=== PATIENT | male | born 1985 | race Caucasian/White ===

== ENCOUNTER 2021-07-07 13:22 | Emergency (ER) | payer SELFPAY ==
[2021-07-07] MEDS ORDERED: NA CHLORIDE 0.9% 1,000 ML ONE (14:12)
[2021-07-07] MEDS ORDERED: ONDANSETRON 4 MG/2 ML VIAL ONE (14:12)
[2021-07-07 14:45] LABS: Absolute Lymphocytes (CBC) 0.8 K/uL (0.7-4.9); Basophils % 0.2 % (0-1.3); Hematocrit 37.5 % (39.6-49.0); Lymphocytes % 8.4 % (15.3-44.8); MPV 10.6 fL (7.6-11.3); RBC Red Blood Cell Count 3.31 M/uL (4.33-5.43)
[2021-07-07 14:53] LABS: ALT/SGPT 171 U/L (12-78); AST/SGOT 260 U/L (15-37); Albumin 3.1 g/dL (3.4-5.0); Alkaline Phosphatase 371 U/L (45-117); BUN Blood Urea Nitrogen 11 mg/dL (7-18); Bicarbonate 29 mmol/L (21-32); Bilirubin Direct 3.7 mg/dL (0-0.2); Bilirubin Total 4.2 mg/dL (0.2-1.0); Glucose Level 252 mg/dL (74-106); Lipase 228 U/L (73-393); Protein, Total 8.1 g/dL (6.4-8.2); Sodium Level 137 mmol/L (136-145)
--- NOTE | 2021-07-07 14:56 | RAD REPORT ---
EXAM DESCRIPTION: CTAbdomen Pelvis W Contrast - 07/07/2021 2:38 pm CLINICAL HISTORY: ABD PAIN COMPARISON: No comparisons TECHNIQUE: CT of the abdomen and pelvis was performed. All CT scans are performed using dose optimization technique as appropriate and may include automated exposure control or mA/KV adjustment according to patient size. FINDINGS: Lower chest: No acute abnormality. Liver: Hepatic steatosis. Biliary: No biliary ductal dilatation. Stomach: No significant focal abnormality. Duodenum: No significant focal abnormality. Pancreas: Enhancing peripancreatic fluid collection measuring roughly 12.7 x 8.6 cm. Spleen: No significant abnormality. Adrenal: No suspicious lesions. Kidney/ureter: No hydronephrosis. No renal calculi. Retroperitoneum: No retroperitoneal adenopathy. Vascular: No aneurysm. Bowel: Colonic wall thickening extending from the mid transverse colon to the rectum. Normal appendix . Moderate stool in the ascending colon.. Peritoneum: Small volume of fluid in the right inguinal canal. Bladder: Grossly unremarkable. Reproductive: No adnexal masses. Bones: No acute fracture. Other: n/a IMPRESSION: Enhancing peripancreatic fluid collection may represent a pseudocyst. No imaging availab le for comparison. The sterility of the fluid is indeterminate by CT. Colonic wall thickening from the mid transverse colon to the rectum could represent colitis.
[2021-07-07 15:44] LABS: SARS-COV-2 RT PCR NEGATIVE (NEGATIVE)
[2021-07-07] MEDS ORDERED: metroNIDAZOLE 500 MG TABLET ONE (16:25)
[2021-07-07] MEDS ORDERED: POTASSIUM CL SA 10 MEQ TAB PO ONE (16:25)
[2021-07-07] MEDS ORDERED: CIPROFLOXACIN HCL 500 MG TAB ONE (16:25)
[2021-07-07] MEDS ORDERED: KCL 20 MEQ/100 mL IVPB 20 MEQ/100 ML BAG IV ONE (16:26)
[2021-07-07] MEDS ORDERED: KETOROLAC 30 MG/ML INJ ONE (16:26)
--- NOTE | 2021-07-07 17:27 | ER ---
Nurse's Notes [facility] Name: Collin Arroyo Age: 36 yrs Sex: Male : 1985 Arrival Date: 07/07/2021 Time: 13:23 Bed 20 Private MD: Diagnosis: Colitis;Vomiting;Diarrhea, unspecified;Abdominal pain, unspecified Presentation: 07/07 13:24 Chief complaint: EMS states: Pt was recently admitted to hospital for pancreatitis and aa5 alcoholism and was admitted for 2 weeks at [facility]. Pt has been at [facility] since yesterday and started with abd pain and vomiting today. Onset of symptoms was July 07, 2021. 13:24 Acuity: ARABELLA 3 aa5 13:24 Method Of Arrival: EMS: [facility] aa5 19:45 Initial Sepsis Screen: Does the patient meet any 2 criteria? No. Patient's initial cc4 sepsis screen is negative. Does the patient have a suspected source of infection? No. Patient's initial sepsis screen is negative. Risk Assessment: Do you want to hurt yourself or someone else? Patient reports no desire to harm self or others. 19:45 Coronavirus screen: Vaccine status: Patient reports being unvaccinated. At this time, cc4 the client does not indicate any symptoms associated with coronavirus-19. Ebola Screen: Patient negative for fever greater than or equal to 101.5 degrees Fahrenheit, and additional compatible Ebola Virus Disease symptoms No symptoms or risks identified at this time. Historical: - Allergies: 13:27 No Known Allergies; aa5 - PMHx: 13:27 Pancreatitis; Alcoholism; aa5 - Immunization history:: Adult Immunizations up to date, Client reports receiving the 2nd dose of the Covid vaccine. - Social history:: Smoking status: Patient reports the use of cigarette tobacco products, denies chronic smoking, but will smoke occasionally, Patient uses alcohol, on a daily basis. however states have not had a drink in 20 days. The patient lives [facility] . Screenin:06 Abuse screen: Denies threats or abuse. Nutritional screening: No deficits noted. sl2 Tuberculosis screening: No symptoms or risk factors identified. Fall Risk None identified. Fall in past 12 months (25 points). No secondary diagnosis (0 pts). IV access (20 points). Ambulatory Aid- None/Bed Rest/Nurse Assist (0 pts). Gait- Normal/Bed Rest/Wheelchair (0 pts) Mental Status- Oriented to own ability (0 pts). Assessment: 13:35 Reassessment: Patient LEATHA X 3, presents to ED via [facility] with c/o sudden onset sl2 severe left upper quadrant abdominal pain 10/10 with nausea and vomiting that started today. Patient states pain gradually subsided after forcibly vomiting X 4 times - denies diarrhea. Patient states he also got dizzy and light headed and fell today. Patient was admitted X 2 weeks and treated for pancreatitis - upon discharge he waited 4 days to have a bed and then was admitted to [facility]. Patient states he has not had any alcoholic beverages X 20 days. 13:35 General: Appears uncomfortable, well groomed, well developed, Behavior is calm, sl2 cooperative, appropriate for age, Reports Nausea, vomiting and LUQ abdominal pain. Pain: Complains of pain in abdomen Pain does not radiate. Pain currently is 3 out of 10 on a pain scale. Quality of pain is described as sharp. Pain: Pain began suddenly, Is continuous. Neuro: No deficits noted. Level of Consciousness is awake, alert, obeys commands, Oriented to person, place, time, situation, Appropriate for age Senior Lead Developer are equal bilaterally Moves all extremities. Gait is steady, Speech is normal, Facial symmetry appears normal, Pupils are PERRLA. Cardiovascular: No deficits noted. Reports Denies Capillary refill < 3 seconds Rhythm is sinus rhythm. Respiratory: No deficits noted. Reports Airway is patent Trachea midline Respiratory effort is even, unlabored, Respiratory pattern is regular, symmetrical. GI: Abdomen is flat, Bowel sounds present X 4 quads. Abd is soft and non tender Reports upper abdominal pain, nausea, vomiting, Patient currently denies diarrhea. : No deficits noted. No signs and/or symptoms were reported regarding the genitourinary system. EENT: Eyes Sclera/Cornea icteric . Derm: No deficits noted. No signs and/or symptoms reported regarding the dermatologic system. Musculoskeletal: No deficits noted. No signs and/or symptoms reported regarding the musculoskeletal system. 19:45 Reassessment: Patient appears in no apparent distress at this time. IVPB KCL complete cc4 with IV dc'd, mel[place]. well; discharge instructions given with v/u; [facility]; VSS Patient states feeling better. Vital Signs: 14:32 BP 120 / 87; Pulse 88; Resp 18; Temp 98.9(O); Pulse Ox 100% on R/A; sl2 19:45 BP 148 / 84; Pulse 92; Resp 20; Temp 98.5(O); Pulse Ox 100% on R/A; cc4 ED Course: 13:23 Patient arrived in ED. as 13:24 Arm band placed on. aa5 13:27 Triage completed. aa5 13:38 Zen Theodore, THERESE is PHCP. pm1 13:38 Jude López MD is Attending Physician. pm1 13:54 Coty Carlton, NELLIE is Primary Nurse. sl2 14:06 Patient has correct armband on for positive identification. Bed in low position. Call sl2 light in reach. 14:06 No provider procedures requiring assistance completed. Inserted saline lock: 20 gauge sl2 in right antecubital area, using aseptic technique. 14:[address] via wheelchair. sl2 14:38 CT Abd/Pelvis - IV Contrast Only In Process Unspecified. EDMS 19:45 IV discontinued, intact, bleeding controlled, No redness/swelling at site. Pressure cc4 dressing applied. Administered Medications: 13:55 Drug: NS 0.9% 1000 ml Route: IV; Rate: 1000 ml; Site: right antecubital; sl2 19:45 Follow up: IV Status: Completed infusion; IV Intake: 1000ml cc4 13:55 Drug: Zofran (Ondansetron) 4 mg Route: IVP; Site: right antecubital; sl2 19:45 Follow up: Response: No adverse reaction; Nausea is decreased cc4 13:55 Drug: Ketorolac 30 mg Route: IVP; Site: right antecubital; sl2 19:45 Follow up: Response: No adverse reaction; Pain is decreased cc4 16:20 Drug: Cipro (ciprofloxacin) 500 mg Route: PO; sl2 19:18 Follow up: Response: No adverse reaction sl2 19:45 Follow up: Response: No adverse reaction cc4 16:22 Drug: Potassium Chloride 40 mEq Route: PO; sl2 19:17 Follow up: Response: No adverse reaction sl2 19:45 Follow up: Response: No adverse reaction cc4 16:22 Drug: Flagyl (metroNIDAZOLE) 500 mg Volume: 100 ml; Route: IVPB; Rate: 200 ml/hr; sl2 Infused Over: 30 mins; Site: left antecubital; 19:17 Follow up: Response: No adverse reaction; IV Status: Completed infusion; IV Intake: sl2 100ml 19:45 Follow up: Response: No adverse reaction cc4 17:30 Drug: Potassium Chloride 20 mEq Route: IV; Rate: calculated rate; Site: left sl2 antecubital; 19:17 Follow up: Response: No adverse reaction; IV Status: Completed infusion; IV Intake: sl2 100ml 19:45 Follow up: Response: No adverse reaction cc4 20:16 Follow up: IV Status: Completed infusion; IV Intake: 100ml cc4 Intake: 19:17 IV: 100ml; Total: 100ml. sl2 19:17 IV: 100ml; Total: 200ml. sl2 19:45 IV: 1000ml; Total: 1200ml. cc4 20:16 IV: 100ml; Total: 1300ml. cc4 Outcome: 17:26 Discharge ordered by . pm1 19:45 Discharged to Rehab Facility cc4 19:45 Condition: improved 19:45 Discharge instructions given to patient, Instructed on discharge instructions, follow up and referral plans. medication usage, Demonstrated understanding of instructions, follow-up care, medications, Prescriptions given X 3. 20:12 Discharge ordered by MD. cc4 20:12 Patient left the ED. cc4 Signatures: Dispatcher [employer] Hetal Aguilar Audri, RN RN aa5 Zen Theodore NP VOLLEYBALL COMMENTATOR pm1 Niki Raines RN RN cc4 Coty Carlton RN RN sl2
--- NOTE | 2021-07-07 17:28 | EDPHYS ---
Physician Documentation [facility] Name: Collin Arroyo Age: 36 yrs Sex: Male : 1985 Arrival Date: 07/07/2021 Time: 13:23 Bed 20 Private MD: ED Physician Jude López HPI: 07/07 14:18 This 36 yrs old Male presents to ER via EMS with complaints of Abdominal pm1 Pain, Nausea/Vomiting. 14:18 The patient presents with abdominal pain in the upper abdomen. Onset: The pm1 symptoms/episode began/occurred 3 week(s) ago. The symptoms do not radiate. Associated signs and symptoms: Pertinent positives: nausea and vomiting, Pertinent negatives: chest pain, constipation, diarrhea, fever, shortness of breath. The symptoms are described as achy. Modifying factors: The symptoms are alleviated by nothing, the symptoms are aggravated by nothing. Severity of pain: in the emergency department the pain is unchanged. The patient has been recently seen by a physician: with similar presenting complaints, Admitted to [facility] 2 weeks ago for pancreatitis and was discharged two days ago. Patient currently in rehab for alcoholism and reports bilateral weakness of his legs due to long hospitalization. Patient required PT to regain the strength in his legs. Patient was walking to recreation at rehab and his legs gave way and he fell forward onto his belly with outstretched hands to protect his head and face. Negative for LOC. Historical: - Allergies: 13:27 No Known Allergies; aa5 - PMHx: 13:27 Pancreatitis; Alcoholism; aa5 - Immunization history:: Adult Immunizations up to date, Client reports receiving the 2nd dose of the Covid vaccine. - Social history:: Smoking status: Patient reports the use of cigarette tobacco products, denies chronic smoking, but will smoke occasionally, Patient uses alcohol, on a daily basis. however states have not had a drink in 20 days. The patient lives [facility] . ROS: 14:18 Constitutional: Negative for fever, chills, and weight loss, Cardiovascular: Negative pm1 for chest pain, palpitations, and edema, Respiratory: Negative for shortness of breath, cough, wheezing, and pleuritic chest pain. 14:18 Back: Negative for injury and pain, MS/Extremity: Negative for injury and deformity, Skin: Negative for injury, rash, and discoloration, Neuro: Negative for headache, weakness, numbness, tingling, and seizure. 14:18 Abdomen/GI: Positive for abdominal pain, of the right upper quadrant and left upper quadrant, Negative for nausea, vomiting, and diarrhea. 14:18 All other systems are negative. Exam: 14:18 Constitutional: This is a well developed, well nourished patient who is awake, alert, pm1 and in no acute distress. Head/Face: Normocephalic, atraumatic. 14:18 Back: No spinal tenderness. No costovertebral tenderness. Full range of motion. Skin: Warm, dry with normal turgor. Normal color with no rashes, no lesions, and no evidence of cellulitis. MS/ Extremity: Pulses equal, no cyanosis. Neurovascular intact. Full, normal range of motion. 14:18 Eyes: Periorbital structures: no acute changes, Extraocular movements: no acute changes, Conjunctiva: no acute changes, no injection, Sclera: icterus, is present. 14:18 Cardiovascular: Exam negative for acute changes, Rate: normal, Rhythm: regular, Pulses: no pulse deficits are appreciated, Edema: is not appreciated. 14:18 Respiratory: Exam negative for acute changes, respiratory distress, shortness of breath, Breath sounds: are clear throughout. 14:18 Abdomen/GI: Inspection: abdomen appears normal, Palpation: abdomen is soft and non-tender, in all quadrants. 14:18 Neuro: Exam negative for acute changes, Orientation: is normal, Mentation: is normal, Motor: is normal, moves all fours. Vital Signs: 14:32 BP 120 / 87; Pulse 88; Resp 18; Temp 98.9(O); Pulse Ox 100% on R/A; sl2 19:45 BP 148 / 84; Pulse 92; Resp 20; Temp 98.5(O); Pulse Ox 100% on R/A; cc4 MDM: 13:40 Patient medically screened. pm1 15:25 Data reviewed: vital signs. Data interpreted: Pulse oximetry: on room air is 100 %. pm1 Interpretation: normal. 16:02 Counseling: I had a detailed discussion with the patient and/or guardian regarding: the pm1 historical points, exam findings, and any diagnostic results supporting the discharge/admit diagnosis, lab results, radiology results, the need for outpatient follow up, a director of research and development, to return to the emergency department if symptoms worsen or persist or if there are any questions or concerns that arise at home. 07/07 13:40 Order name: Basic Metabolic Panel pm1 07/07 13:40 Order name: CBC with Diff pm1 07/07 13:40 Order name: Hepatic Function; Complete Time: 14:55 pm1 07/07 13:40 Order name: Lipase; Complete Time: 14:55 pm1 07/07 13:40 Order name: CT Abd/Pelvis - IV Contrast Only; Complete Time: 15:00 pm1 07/07 13:40 Order name: Basic Metabolic Panel; Complete Time: 14:55 EDMS 07/07 13:40 Order name: CBC with Automated Diff; Complete Time: 09:17 EDMS 07/07 14:05 Order name: Troponin (emerg Dept Use Only); Complete Time: 17:00 pm1 07/07 15:03 Order name: COVID-19/FLU A+B; Complete Time: 15:47 EDMS 07/07 19:56 Order name: CBC Smear Scan; Complete Time: 09:17 EDMS 07/07 13:40 Order name: IV Saline Lock; Complete Time: 14:31 pm1 07/07 13:40 Order name: Labs collected and sent; Complete Time: 14:31 pm1 07/07 14:05 Order name: EKG; Complete Time: 14:05 pm1 07/07 14:05 Order name: EKG - Nurse/Tech pm1 Administered Medications: 13:55 Drug: NS 0.9% 1000 ml Route: IV; Rate: 1000 ml; Site: right antecubital; sl2 19:45 Follow up: IV Status: Completed infusion; IV Intake: 1000ml cc4 13:55 Drug: Zofran (Ondansetron) 4 mg Route: IVP; Site: right antecubital; sl2 19:45 Follow up: Response: No adverse reaction; Nausea is decreased cc4 13:55 Drug: Ketorolac 30 mg Route: IVP; Site: right antecubital; sl2 19:45 Follow up: Response: No adverse reaction; Pain is decreased cc4 16:20 Drug: Cipro (ciprofloxacin) 500 mg Route: PO; sl2 19:18 Follow up: Response: No adverse reaction sl2 19:45 Follow up: Response: No adverse reaction cc4 16:22 Drug: Potassium Chloride 40 mEq Route: PO; sl2 19:17 Follow up: Response: No adverse reaction sl2 19:45 Follow up: Response: No adverse reaction cc4 16:22 Drug: Flagyl (metroNIDAZOLE) 500 mg Volume: 100 ml; Route: IVPB; Rate: 200 ml/hr; sl2 Infused Over: 30 mins; Site: left antecubital; 19:17 Follow up: Response: No adverse reaction; IV Status: Completed infusion; IV Intake: sl2 100ml 19:45 Follow up: Response: No adverse reaction cc4 17:30 Drug: Potassium Chloride 20 mEq Route: IV; Rate: calculated rate; Site: left sl2 antecubital; 19:17 Follow up: Response: No adverse reaction; IV Status: Completed infusion; IV Intake: sl2 100ml 19:45 Follow up: Response: No adverse reaction cc4 20:16 Follow up: IV Status: Completed infusion; IV Intake: 100ml cc4 Disposition: 07/08 19:04 Co-signature as Attending Physician, Jude López MD I agree with the assessment and rn plan of care. Attestation: The patient's history, exam findings, diagnostics, and a summary of any interventions or procedures was reviewed in detail with Zen Theodore NP. Disposition Summary: 07/07/21 20:12 Discharge Ordered Location: Home(07/07/21 20:12) cc4 Problem: new(07/07/21 20:12) cc4 Symptoms: have improved(07/07/21 20:12) cc4 Condition: Stable(07/07/21 20:12) cc4 Diagnosis - Colitis cc4 - Vomiting(07/07/21 20:12) cc4 - Diarrhea, unspecified(07/07/21 20:12) cc4 - Abdominal pain, unspecified(07/07/21 20:12) cc4 Followup: pm1 - With: Emergency Department - When: As needed - Reason: Worsening of condition Followup: pm1 - With: Private Physician - When: 2 - 3 days - Reason: Recheck today's complaints, Continuance of care, Re-evaluation by your physician Forms: - Medication Reconciliation Form cc4 - Thank You Letter cc4 - Antibiotic Education cc4 - Prescription Opioid Use cc4 Signatures: Dispatcher [employer] EDMS Jude López MD MD rn Calderon, Audri, RN RN aa5 Zen Theodore, ACID WASHER OPERATOR ACID WASHER OPERATOR pm1 Niki Raines, RN RN cc4 Coty Carlton RN RN sl2 Corrections: (The following items were deleted from the chart) 07/07 15:03 13:40 CORONAVIRUS+MR.LAB.BRZ ordered. EDMS EDMS 15:11 13:40 Influenza Screen (A \T\ B)+BA.LAB.BRZ ordered. EDMS EDMS 19:37 17:26 Home pm1 bb 19:37 17:26 new pm1 bb 19:37 17:26 have improved pm1 bb 19:37 17:26 Stable pm1 bb 19:37 17:26 Colitis pm1 bb 19:37 17:26 Vomiting pm1 bb 19:37 17:26 Diarrhea, unspecified pm1 bb 19:37 17:26 Abdominal pain, unspecified pm1 bb
[2021-07-07 19:56] LABS: Blood Morphology Comment NOTED (NOT SEEN); Macrocytosis 2+; Platelet Estimate ADEQ; Polychromasia SLIGHT; White Blood Cell Scan OK (OK)
[2021-07-07 20:18] VITALS: O2SAT 100
[2021-07-07 20:19] VITALS: BP 148/84; TEMP 98.5
--- NOTE | 2021-07-11 18:35 | EKG ---
Test Date: 2021-07-07 Test Time: 15:10:13 Floor Space Allocator: HILDA MEASUREMENT RESULTS: Intervals: Rate: 80 MI: 132 QRSD: 78 QT: 402 QTc: 463 [place]: P: MI: 132 QRS: 50 T: 41 INTERPRETIVE STATEMENTS: Sinus rhythm with premature atrial complexes in a pattern of bigeminy Otherwise normal ECG Compared to ECG 07/07/2021 15:09:04 No significant changes Electronically Signed On 07-11-21 18:24:48 ENVIRONMENTAL EMERGENCIES PLANNER by Jim Hunter
--- NOTE | 2021-07-11 18:35 | EKG ---
Test Date: 2021-07-07 Test Time: 15:09:04 Real Estate Rep: HILDA MEASUREMENT RESULTS: Intervals: Rate: 85 MT: 124 QRSD: 84 QT: 390 QTc: 464 [place]: P: MT: 124 QRS: 51 T: 29 INTERPRETIVE STATEMENTS: Sinus rhythm with premature atrial complexes in a pattern of bigeminy Otherwise normal ECG No previous ECG available for comparison Electronically Signed On 07-11-21 18:24:50 POSTAL SERVICE WINDOW CLERK by Jim Hunter
== END 2021-07-07 20:12 | disposition home or self-care (01) ==
LOC: ER 13:22
DX: K52.9 Noninfective gastroenteritis and colitis, unspecified (principal); R11.10 Vomiting, unspecified; F10.20 Alcohol dependence, uncomplicated; F17.210 Nicotine dependence, cigarettes, uncomplicated; Z20.822 Contact with and (suspected) exposure to COVID-19
CPT/HCPCS: 0240U; 36415; 74177; 80048; 80076; 82565; 83690; 84484; 85025; 93005; 96361; 96365; 96366; 96375; 99285; J2405; J3480; J7030; Q9967